=== PATIENT | female | born 1940 | race Caucasian/White ===

== ENCOUNTER → 2016-10-11 | Outpatient (CLI) | payer BC ==
[2014-03-19 17:18] VITALS: BP 120/57
[~2016-10-11] MED LIST: ASPI81TA2 PO; ATOR40TA PO; METF10002 PO; MULT-121 PO
--- NOTE | 2016-10-11 15:52 | KCIC ---
PROCEDURE Right lower extremity nonvascular ultrasound. HISTORY Nodule to right posterior thigh. TECHNIQUE Real-time ultrasound imaging in the right lower extremity area of concern is performed. COMPARISON None. FINDINGS In the right posterior upper thigh, there is a large cystic and solid mass measuring 16 x 8.8 x 10.3 centimeters. Color Doppler demonstrates blood flow in some of the solid component. Structure of origin is unclear. Proximity to bone is unclear. IMPRESSION Large cystic and solid mass with some internal vascularity in the right posterior upper thigh. Malignancy should be excluded. Further evaluation with right femur radiographs and right thigh MRI with and without contrast is recommended. Electronically signed by: Heri Barton MD (Oct 11, 2016 15:51:20)
== END | disposition home or self-care (01) ==
LOC: KCIC US 14:14
PROVIDERS: ATTEND Nurse Practitioner Family
DX: R22.42 Localized swelling, mass and lump, left lower limb (principal); M79.9 Soft tissue disorder, unspecified
CPT/HCPCS: 76881

== ENCOUNTER → 2016-10-24 | Outpatient (CLI) | payer BC ==
[2014-03-19 17:18] VITALS: BP 120/57
[~2016-10-24] MED LIST changes: +GADOBUTROL 7.5 MMOL/7.5 ML VIAL IV ONE
--- NOTE | 2016-10-24 13:30 | KCIC ---
PROCEDURE MR of the right proximal thigh with and without contrast HISTORY Right posterior thigh mass for at least 3 months, diagnosis on ultrasound of October 11, 2016. COMPARISON Ultrasound October 11, 2016 TECHNIQUE 12 cc [employer] FINDINGS The MR confirms the large soft tissue mass in the posterior thigh. This is located within the hamstring muscle group. This likely originates from either the biceps femoris long-head or the semi tendinosis muscles. The mass measures 21.5 cm longitudinal by 10.5 cm wide by 9.5 cm AP. This demonstrates solid peripheral enhancement pattern with a large central nonenhancing pocket of heterogeneous fluid, likely necrosis. The masses medially posterior to the sciatic nerve which is displaced anteriorly but not directly engulfed. No bone lesion, marrow edema or acute fracture. 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 Electronically signed by: Marcellus Friedman MD (Oct 24, 2016 13:28:40)
== END | disposition home or self-care (01) ==
LOC: KCIC MRI 09:04
PROVIDERS: ATTEND Nurse Practitioner Family
DX: M79.89 Other specified soft tissue disorders (principal)
CPT/HCPCS: 73720; 82565; A9585

== ENCOUNTER → 2017-03-07 | Outpatient (CLI) | payer BC ==
[2014-03-19 17:18] VITALS: BP 120/57
[~2017-03-07] MED LIST changes: +ASPI-630 PO; -ASPI81TA2 PO; -GADOBUTROL 7.5 MMOL/7.5 ML VIAL IV ONE; +METF-620 PO; -METF10002 PO
--- NOTE | 2017-03-07 10:34 | CARD ---
APPROVED REPORT EXAM: Two-dimensional and M-mode echocardiogram with Doppler and color Doppler. Other Information Quality : Average Rhythm : NSR INDICATION Pre-Op 2D DIMENSIONS Left Atrium(2D)3.3 (1.6-4.0cm)IVSd0.9 (0.7-1.1cm) Aortic Root(2D)2.9 (2.0-3.7cm)LVDd5.8 (3.9-5.9cm) LVOT Diameter2.0 (1.8-2.4cm)PWd0.9 (0.7-1.1cm) LVDs3.9 (2.5-4.0cm)FS (%) 31.7 % SV96.4 mlLVEF(%)59.0 (>50%) Aortic Valve AoV Peak Vu.109.5cm/sAoV VTI16.9cm AO Peak GR.4.8mmHgLVOT Peak Vu.71.4cm/s LVOT VTI 12.44cmAO Mean GR.3mmHg KRYSTA (VMAX)1.28mh7DQK (VTI)2.23cm2 Mitral Valve MV E Jkfxlpll75.6cm/sMV DECEL XHTD018oc MV A Zemyltna94.1cm/sMV E Mean Gr.1mmHg MV XVP89okY/A Ratio0.7 MV A Fudryqis281myMMI (PHT)2.65cm2 TDI E/Lateral E'4.9E/Medial E'6.6 Pulmonary Valve PV Peak Hawoghqg82.0cm/sPV Peak Grad.2mmHg RVOT VTI14.0cm Tricuspid Valve TR P. Ljsnmwqy063zi/sRAP TBKFDZXI8daBu TR Peak Gr.77egLuNGET78yzXm Pulmonary Vein S1 Vizpcfsu95.9cm/sD2 Ulceaqta80.8cm/s LEFT VENTRICLE The left ventricle is normal size. There is normal left ventricular wall thickness. Left ventricle sy stolic function is normal. The Ejection Fraction is 55-60%. Septal motion consistent with post-operat johnson state. Tissue Doppler imaging reveals mild left ventricular diastolic dysfunction. Transmitral Do ppler flow pattern is Grade I-abnormal relaxation pattern. There is no ventricular septal defect visu alized. RIGHT VENTRICLE The right ventricle is normal size. The right ventricular systolic function is normal. ATRIA The left atrium size is normal. The right atrium size is normal. The interatrial septum is intact wit h no evidence for an atrial septal defect or patent foramen ovale as noted on 2-D or Doppler imaging. AORTIC VALVE The aortic valve is normal in structure. The aortic valve is trileaflet. Doppler and Color Flow revea led trace to mild aortic regurgitation. There is no significant aortic valvular stenosis. MITRAL VALVE Mitral annular calcification is borderline. There is no mitral valve stenosis. Doppler and Color Flow revealed trace mitral valve regurgitation. TRICUSPID VALVE The tricuspid valve is normal in structure and function. Doppler and Color Flow revealed mild tricusp id regurgitation. The PA pressure was estimated at 31 mmHg. There is no tricuspid valve stenosis. PULMONIC VALVE The pulmonic valve is not well visualized. Doppler and Color Flow revealed no pulmonic valvular regur gitation. There is no pulmonic valvular stenosis. GREAT VESSELS The aortic root is normal in size. Normal pulmonary venous flow (Doppler). The IVC is normal in size and collapses >50% with inspiration. PERICARDIAL EFFUSION There is no evidence of significant pericardial effusion. Critical Notification Critical Value: No <Conclusion> The left ventricle is normal size. Left ventricle systolic function is normal. The Ejection Fraction is 55-60%. There is normal left ventricular wall thickness. There is no significant aortic valvular stenosis. Doppler and Color Flow revealed trace to mild aortic regurgitation. Doppler and Color Flow revealed trace mitral valve regurgitation. Doppler and Color Flow revealed mild tricuspid regurgitation. The PA pressure was estimated at 31 mmHg.
== END | disposition home or self-care (01) ==
LOC: ECHO 08:37
PROVIDERS: ATTEND Internal Medicine Cardiovascular Disease
DX: Z01.818 Encounter for other preprocedural examination (principal); I08.3 Combined rheumatic disorders of mitral, aortic and tricuspid valves; Z95.1 Presence of aortocoronary bypass graft
CPT/HCPCS: 93306

== ENCOUNTER → 2017-11-20 | Outpatient (CLI) | payer BC ==
[2017-11-20] MEDS: IOHEXOL 240 MG/ML 50ML VIAL. PO (12:45)
[2017-11-20 13:52] LABS: ISTAT CREATININE 0.5 mg/dL (0.6-1.1)
== END | disposition home or self-care (01) ==
LOC: KCIC CT 12:19
DX: K57.30 Diverticulosis of large intestine without perforation or abscess without bleeding (principal); R91.8 Other nonspecific abnormal finding of lung field; I70.0 Atherosclerosis of aorta; R59.1 Generalized enlarged lymph nodes
CPT/HCPCS: 71250; 74176; 82565; Q9966